=== PATIENT | female | born 1955 | race American Indian/Alaskan Native ===

== ENCOUNTER 2021-09-21 10:11 | Outpatient (CLI) | payer MEDICARE ==
--- NOTE | 2021-09-21 10:43 | XRay Report ---
CHEST 2 VIEWS INDICATION: COUGH. COMPARISON: none FINDINGS: Support devices: None. Heart: Within normal limits. Moderate hiatal hernia posterior to the heart is noted. Lungs/pleura: Small right pleural effusion versus chronic right pleural thickening is noted at the [facility] lung base. I favor chronic pleural thickening given the right rib deformities. The lungs are darvin r otherwise. No pneumothorax. Additional findings: None. IMPRESSION: No acute cardiopulmonary process is appreciated. Probable chronic right pleural thickening as described. Moderate hiatal hernia. Signer Name: Ajay Dixon Jr, MD Signed: 09/21/2021 10:39 AM Workstation Name: [id number]
== END 2021-09-21 10:12 | disposition home or self-care (01) ==
LOC: XRAY 10:11
PROVIDERS: ATTEND Internal Medicine
DX: R05.9 Cough, unspecified (principal); K44.9 Diaphragmatic hernia without obstruction or gangrene
CPT/HCPCS: 71046